=== PATIENT | male | born 1980 | race Caucasian/White ===

== ENCOUNTER 2019-04-06 23:02 | Emergency (ER) | payer SELFPAY ==
[2019-04-06] MEDS ORDERED: SODIUM CHLORIDE 0.9% 100ML 0 ML IVPB ONE (23:05)
[2019-04-06] MEDS ORDERED: cefTRIAXone SODIUM 1 GM in SODIUM CHL 0.9% 50ML MIN-BAG+ 50 ML IVPB ONE (23:05)
[2019-04-06] MEDS ORDERED: SODIUM CHLORIDE 0.9% 1000ML 1,000 ML IVS ONE (23:05)
[2019-04-06] MEDS ORDERED: MORPHINE SULFATE INJ 10 MG/ML VIAL IV ONE (23:05)
[2019-04-06] MEDS ORDERED: SODIUM CHL 0.9% 50ML MIN-BAG+ 50 ML IVPB ONE (23:12)
[2019-04-06] MEDS ORDERED: cefTRIAXone SODIUM 1 GM VIAL ONE (23:12)
[2019-04-06] MEDS ORDERED: ceFAZolin SODIUM 2 GRAMS PREMI 2 GM in PREMIX BAG 1 BAG IVPB ONE (23:24)
[2019-04-06 23:29] VITALS: TEMP 97
[2019-04-06] MEDS ORDERED: LIDOCAINE 2% W/ EPINEPHRINE 20 ML VIAL INJ ONE (23:35)
[2019-04-06] MEDS ORDERED: ETOMIDATE INJECTION 2 MG/ML 20ML VIAL IV ONE (23:35)
--- NOTE | 2019-04-06 23:51 | RAD ---
EXAM DESCRIPTION: Forearm,Left CLINICAL HISTORY: 38 years Male chainsaw laceration COMPARISON: None TECHNIQUE: Two view study of the left forearm was obtained. FINDINGS: Subcortical bony defect with fragmentation dorsal aspect distal ulna. Comminuted fracture seen. Bone fragments identified within the soft tissues. Soft tissue defect and swelling identified in this region. No radiopaque foreign bodies otherwise noted. No bony abnormality mid or proximal ulna. Olecranon spur present. No fractures involving the radius. Well-circumscribed bone fragment in region of ulnar styloid likely related to more trauma. IMPRESSION: Bony defect with fragmentation distal ulnar shaft. Multiple bone fragments within adjacent soft tissues with associated soft tissue swelling and laceration. No abnormality involving the radius. More remote trauma ulnar styloid. Electronically signed by: Felicita Eduardo MD 04/06/2019 11:50 PM CDT
[2019-04-06] MEDS ORDERED: ceFAZolin SODIUM 2 GRAMS PREMI 50 ML IVPB ONE (23:52)
[2019-04-07] MEDS ORDERED: MORPHINE SULFATE INJ 10 MG/ML VIAL IV ONE (00:05)
--- NOTE | 2019-04-07 00:05 | ED.PDOC ---
History of Present Illness - General Chief Complaint: Trauma Stated Complaint: cut left wrist Time Seen by Provider: 04/06/19 23:04 Source: patient Exam Limitations: no limitations - History of Present Illness Initial Comments: the patient is a 38-year-old male presenting to the emergency room secondary to having had a chainsaw bounced back and cut into the ulnar aspect of his left forearm approximately 4 inches proximal to the wrist. He cut the muscle belly and tendon and did extend laceration down into the ulna on that side. He is having decreased sensation to the fourth and fifth digit and very poor flexion. Initially upon arrival when he was actually fairly minimal with him having lost probably 40-50 cc of blood. However after the patient was moved around for x-ray multiple arteries started bleeding rapidly. The patient was unable to hold still for repair so moderate sedation had to be implemented. Risks and benefits were explained and the patient did agree to proceed. He did have a total of 8 mg of morphine prior. IV fluids were started prior as well. Respiratory was present for moderate sedation. The patient was monitored throughout moderate sedation with blood pressures and pulse oximetry. The patient required a total of 35 mg of etomidate to maintain moderate sedation for the emergent repair. The wound consists of significantly macerated tissue. At least 4 arterial bleeding sites required repair. One [id number] suture of 3-0 ethilon was used for the first and then we switched to 2 0 Ethilon. He actually did require a [id number] suture over the skin on the distal side of the laceration as there was an artery on the underside that we could not get to to stop the bleeding without going through the skin. In all the patient lost another 200 cc or so of blood with a second round of bleeding. Good hemostasis appears to be obtained and the patient has a pressure dressing in place. He seems to have tolerated moderate sedation well. the wound was irrigated after with a liter of saline. The skin is not being closed. radial pulse is strong. Timing/Duration: momentarily Severity: severe Improving Factors: nothing Worsening Factors: nothing Associated Symptoms: denies symptoms Allergies/Adverse Reactions: Allergies NO KNOWN ALLERGY Allergy (Unverified 07/13/14 19:53) Home Medications: Ambulatory Orders Acetaminophen W/ Codeine [Tylenol W/ CODEINE #3] 1 ea PO Q4-6H PRN #14 07/13/14 Sulfamethoxazole-Trimethoprim [Bactrim Ds 800-160 mg] 1 tab PO BID #20 tab 07/13/14 Review of Systems - Review of Systems Constitutional: States: malaise EENTM: States: no symptoms reported Respiratory: States: no symptoms reported Cardiology: States: no symptoms reported Gastrointestinal/Abdominal: States: no symptoms reported Genitourinary: States: no symptoms reported Musculoskeletal: States: see HPI Skin: States: see HPI Neurological: States: see HPI Endocrine: States: no symptoms reported All other Systems: No Change from Baseline Past Medical History (General) - Patient Medical History Hx Asthma: No Hx Hypertension: No Hx Diabetes: No Surgical History: no surgical history - Vaccination History Hx Tetanus, Diphtheria Vaccination: Yes Hx Influenza Vaccination: No Hx Pneumococcal Vaccination: No - Social History Hx Tobacco Use: Yes Hx Alcohol Use: Yes - Female History Patient : No Family Medical History - Family History Father Family History: No Known Living Status: Still Living Physical Exam - Physical Exam General Appearance: Alert, Obvious distress, Ill Appearing Eye Exam: bilateral normal Ears, Nose, Throat: hearing grossly normal, normal ENT inspection Neck: non-tender, supple Respiratory: lungs clear, normal breath sounds, no respiratory distress, no accessory muscle use Cardiovascular/Chest: normal peripheral pulses, regular rate, rhythm, no edema Peripheral Pulses: radial,right: 2+, radial,left: 2+ Gastrointestinal/Abdominal: non tender, soft Rectal Exam: deferred Extremity: normal range of motion, no pedal edema, normal capillary refill Neurologic: records analyst II-XII nml as tested, alert, normal mood/affect, oriented x 3, other - the patient does have sensory deficits to the fourth and fifth digit and the lateral aspect of the left hand Skin Exam: other - the patient has a large 14 cm laceration extending across the medial aspect of the forearm approximately 4 inches proximal to the wrist. Macerated laceration cuts through skin, tendon, muscle and then into the ulna as demonstrated on the x-ray. Multiple arterial bleeding sites open up over the 15 minutes after arrival. Comments: Vital Signs - 24 hr 04/06/19 23:09 Temperature 97 F L Pulse Rate [ 80 right] Respiratory 18 Rate Blood Pressure 109/80 [Right Arm] O2 Sat by Pulse 96 Oximetry Progress - Progress Progress: 04/07/19 00:07 the patient a 38-year-old male presenting to the emergency room secondary to a chainsaw injury to left forearm. It was not initially bleeding badly however the lacerated arteries opened up after about 15 or 20 minutes. We did tie off at least 4 bleeding arteries with the patient under moderate sedation. most of the sutures will need to be removed in the operating room under more controlled conditions where a better dissection can take place for more specific localized arterial ligation. If they are not he will have some additional tissue necrosis. He does have neurological deficits to the ulnar aspect of his left hand. he did receive some localized lidocaine to the edges of the laceration before we wrapped him up for comfort purposes. We did not inject lidocaine deeper into the wound. Estimated blood loss in total for this episode is probably around 250 cc. Again the wound does need significantly more irritation in the operating room tonight along with further dissection and takedown of the sutures placed for hemostasis to prevent additional tissue necrosis. the patient is being started on Ancef. The acceptance at [facility] with Dr. Chao and Dr. Abdalla is greatly appreciated. The patient is being transferred for higher level of care. He appears to tolerated the moderate sedation well. felisha duran [phone] Departure - Departure Clinical Impression: Laceration of ulnar artery at forearm level, left arm, sequela Ulnar nerve damage Qualifiers: Encounter type: initial encounter Laterality: left Qualified Code(s): S54.02XA - Injury of ulnar nerve at forearm level, left arm, initial encounter Disposition: Transfer to Hospital Departure Forms: ED Discharge - Pt. Copy, Patient Portal Self Enrollment Home Medications: Ambulatory Orders Acetaminophen W/ Codeine [Tylenol W/ CODEINE #3] 1 ea PO Q4-6H PRN #14 07/13/14 Sulfamethoxazole-Trimethoprim [Bactrim Ds 800-160 mg] 1 tab PO BID #20 tab 07/13/14 Transfer to Outside Facility - Transfer Information Decision to Transfer Date: 04/07/19 Decision to Transfer Time: 00:11 Reason for Transfer: required specialist not available Accepting Facility: [facility] [place]
[2019-04-07] MEDS ORDERED: ETOMIDATE INJECTION 2 MG/ML 20ML VIAL IV ONE (00:06)
[2019-04-07 00:13] VITALS: BP 125/85; O2SAT 98
== END 2019-04-07 00:09 | disposition short-term general hospital (02) ==
LOC: ER 23:02
DX: S55.012A Laceration of ulnar artery at forearm level, left arm, initial encounter (principal); S56.922A Laceration of unspecified muscles, fascia and tendons at forearm level, left arm, initial encounter; S54.02XA Injury of ulnar nerve at forearm level, left arm, initial encounter; Z87.891 Personal history of nicotine dependence; W29.3XXA Contact with powered garden and outdoor hand tools and machinery, initial encounter; Y92.9 Unspecified place or not applicable
CPT/HCPCS: 73090; J0690; J0696; J2270; J7030; J7050